=== PATIENT | female | born 1955 | race Asian ===

== ENCOUNTER 2024-02-29 04:16 | Day surgery (SDC) | payer OTHER, MEDICARE ==
[2024-02-24 17:10] VITALS: BMI 33.5
[2024-02-29] MEDS ORDERED: ONDANSETRON 4 MG/2 ML VIAL IVPUSH PRN (07:39)
[2024-02-29] MEDS ORDERED: oxyCODONE HCL 5 MG TABLET PO PRN (07:39)
[2024-02-29] MEDS ORDERED: LACTATED RINGERS SOLUTION 1,000 ML IV SCH (07:45)
[2024-02-29] MEDS ORDERED: DEXAMETHASONE SOD PHOSPHATE 4 MG/1 ML VIAL ONE (11:18)
[2024-02-29] MEDS ORDERED: ONDANSETRON 4 MG/2 ML VIAL ONE (11:18)
[2024-02-29] MEDS ORDERED: MIDAZOLAM HCL 2 MG/2 ML SINGLE DOSE VIAL ONE (11:18)
[2024-02-29] MEDS ORDERED: PROPOFOL 20 ML ONE (11:18)
[2024-02-29 14:16] VITALS: RESP 18
[2024-02-29 14:32] VITALS: BP 137/65; PULSE 60; TEMP 97.3
== END 2024-02-29 15:15 | disposition home or self-care (01) ==
LOC: JASU-SURG 04:16
PROVIDERS: ATTEND Obstetrics & Gynecology
PROC: 0UBC8ZZ Excision of Cervix, Via Natural or Artificial Opening Endoscopic (ICD-10-PCS; principal; 2024-02-29 11:00)
DX: N84.1 Polyp of cervix uteri (principal)
CPT/HCPCS: 82962; 88305-TC; 94760